=== PATIENT | female | born 1965 | race Two or more races ===

== ENCOUNTER 2020-12-12 08:45 | Day surgery (SDC) | payer OTHER ==
[~2020-12-12 08:45] MED LIST: D3 + K2 DOTS 11 EACH PO; DOLOGESIC 500-1 EACH PO; GABAPENTIN100 M2 PO; PEPCID40 MG PO
[2020-12-12] MEDS ORDERED: TYLENOL325 MG PO (10:55)
== END 2020-12-12 16:30 | disposition home or self-care (01) ==
LOC: CIR.AMB 08:45
PROVIDERS: ATTEND Obstetrics & Gynecology Gynecology
DX: N84.0 Polyp of corpus uteri (principal); Z20.822 Contact with and (suspected) exposure to COVID-19